=== PATIENT | female | born 1995 | race Caucasian/White ===

== ENCOUNTER 2016-12-14 15:37 | Emergency (ER) | payer OTHER ==
--- NOTE | 2016-12-14 16:17 | EDPHY ---
H & P Stated Complaint: RLQ Pain Source: Patient Exam Limitations: No limitations - Personal History LMP (Females 10-55): 8-14 Days Ago Current Tetanus/Diphtheria Vaccine: Yes Current Tetanus Diphtheria and Acellular Pertussis (TDAP): Yes Tetanus Vaccine Date: <10 years - Medical/Surgical History Hx Asthma: No Hx Chronic Respiratory Disease: No Hx Diabetes: No Hx Cardiac Disease: No Hx Renal Disease: No Hx Cirrhosis: No Hx Alcoholism: No Hx HIV/AIDS: No Hx Splenectomy or Spleen Trauma: No Other PMH: R ovarian cysts - Social History Smoking Status: Current some day smoker Time Seen by Provider: 12/14/16 15:48 HPI/ROS: CHIEF COMPLAINT: Right lower quadrant pain HISTORY OF PRESENT ILLNESS: 21-year-old female presents emergency department sent from her OBGYN for right lower quadrant pain. Patient reports a history of ovarian cysts, last one diagnosed in January. Patient reports she has had intermittent mild pain in this right lower quadrant for the past year that has significantly worsened in the last week. Patient denies fevers or chills, no nausea or vomiting, no urinary frequency, urgency or dysuria. Patient states the pain occasionally radiates to her flank. She denies vaginal discharge, she is sexually active. No pain with intercourse. No diarrhea. REVIEW OF SYSTEMS: A comprehensive 10 point review of systems is otherwise negative aside from elements mentioned in the history of present illness. (Bety Grimm) - Physical Exam Exam: Physical Exam Gen: Alert and Oriented, NAD HEENT: PERRL, moist mucous membranes NECK: no meningismus CV: regular rate and regular rhythm PULM: CTAB, no wheezes ABDOMEN: soft, umbilical and right lower quadrant tenderness to palpation, positive Rovsing's, negative rebound tenderness BACK: No CVA tenderness NEURO: Neurologically grossly intact EXTREMITIES: normal appearing SKIN: no rash or break in skin on exposed skin PSYCH: answers questions appropriately. (Bety Grimm) Constitutional: Initial Vital Signs Temperature (C) 36.9 C 12/14/16 15:42 Heart Rate 82 12/14/16 15:42 Respiratory Rate 14 12/14/16 15:42 Blood Pressure 117/85 H 12/14/16 15:42 O2 Sat (%) 100 12/14/16 15:42 O2 Delivery Mode Room Air Allergies/Adverse Reactions: Sulfa (Sulfonamide Antibiotics) Allergy (Verified 12/14/16 15:42) Home Medications: Medication Instructions Recorded Hydrocodone/APAP 5/325 [[place] 1 - 2 tab PO Q4 PRN #10 tab 12/14/16 5/325 (RX)] Medical Decision Making - Diagnostics Imaging: Ultrasound reported to me by Dr. Diogo Barney. No dominant ovarian cyst visualized. No free fluid in the pelvis. Normal appendix likely visualized. No evidence of appendicitis. See formal report. (Triny Conner) ED Course/Re-evaluation: IV established, CBC, chemistry panel, urinalysis, urine , right lower quadrant ultrasound and pelvic ultrasound have been ordered. 1700-report passed on to Dr. Conner at the end of my shift pending labs and ultrasound results. (Bety Grimm) Patient was seen and evaluated by me at 5:45 p.m.. On exam she has continued RLQ tenderness, no guarding. She is afebrile. She has not had vomiting or diarrhea. She underwent evaluation by her laborer road today, including pelvic exam. US negative for ovarian cyst, ovarian torsion, appendicitis. Possible constipation, but no history of constipation. I do not suspect PID. UA negative for UTI. Description of pain makes ureterolithiasis unlikely. No hematuria. She is not . We discussed CT of abdomen/pelvis (she has had a CT previously for abdominal pain) and agreed that this study would be unlikely to help with the diagnosis. She is comfortable with watching and waiting. She will follow up with gastroenterology if pain persists and is given a referral. She is given RX for small quantity of NOrco to use for pain relief. We reviewed the danger signs that should prompt her to be re-evaluated immediately. (Triny Conner) - Data Points Laboratory Results: Laboratory Results 12/14/16 16:15 12/14/16 16:15 12/14/16 16:15 WBC 6.27 10^3/uL (3.80-9.50) RBC 4.06 L 10^6/uL (4.18-5.33) Hgb 13.2 g/dL (12.6-16.3) Hct 37.6 L % (38.0-47.0) MCV 92.6 fL (81.5-99.8) MCH 32.5 pg (27.9-34.1) MCHC 35.1 g/dL (32.4-36.7) RDW 11.4 L % (11.5-15.2) Plt Count 263 10^3/uL (150-400) MPV 10.1 fL (8.7-11.7) Neut % (Auto) 58.8 % (39.3-74.2) Lymph % (Auto) 33.5 % (15.0-45.0) Band[place] % (Auto) 6.1 % (4.5-13.0) Eos % (Auto) 0.8 % (0.6-7.6) Baso % (Auto) 0.6 % (0.3-1.7) Nucleat RBC Rel Count 0.0 % (0.0-0.2) Absolute Neuts (auto) 3.69 10^3/uL (1.70-6.50) Absolute Lymphs (auto) 2.10 10^3/uL (1.00-3.00) Absolute Monos (auto) 0.38 10^3/uL (0.30-0.80) Absolute Eos (auto) 0.05 10^3/uL (0.03-0.40) Absolute Basos (auto) 0.04 10^3/uL (0.02-0.10) Absolute Nucleated RBC 0.00 10^3/uL (0-0.01) Immature Gran % 0.2 % (0.0-1.1) Immature Gran # 0.01 10^3/uL (0.00-0.10) Departure - Departure Disposition: Home, Routine, Self-Care Clinical Impression: Abdominal pain Qualifiers: Abdominal location: right lower quadrant Qualifier Code: (R10.31) Right lower quadrant pain Condition: Good Instructions: Abdominal Pain (ED) Additional Instructions: If you develop fever, vomiting, severe persistent abdominal pain-- you should return for another evaluation. I am referring you to Dr. Diogenes Cates, shelter supervisor, for additional evaluation as needed. Call his office tomorrow to schedule an appointment. Let them know that you were referred by the emergency department. Referrals: Diogenes Cates MD [Medical Doctor] - As per Instructions Stand Alone Forms: School Excuse Prescriptions: Hydrocodone/APAP 5/325 [[place] 5/325 (RX)] 1 - 2 tab PO Q4 PRN #10 tab PRN Reason: pain
[2016-12-14 16:26] LABS: COLOR YELLOW; LEUKOCYTE ESTERASE,URINE NEGATIVE (NEGATIVE); NITRITE,URINE NEGATIVE (NEGATIVE)
[2016-12-14 16:39] LABS: ANION GAP 11 mEq/L (8-16); CALCIUM 9.1 mg/dL (8.5-10.4); CARBON DIOXIDE 22 mEq/l (22-31); CHLORIDE 105 mEq/L (97-110); CREATININE 0.5 mg/dL (0.6-1.0); GLOMERULAR FILTRATION RATE > 60; GLUCOSE 85 mg/dL (70-100); POTASSIUM 3.9 mEq/L (3.5-5.2); SODIUM 138 mEq/L (134-144)
--- NOTE | 2016-12-14 17:54 | US ---
Ultrasound (Limited) Right Lower Quadrant Attention Appendix Reason for examination: Right lower quadrant pain. Technique: Longitudinal and transverse images are obtained with attention to the right lower quadrant . Graded compression is also employed. Color Doppler evaluation is employed for assessment of vascula rity. Findings: No noncompressible bowel is identified. There is possible visualization of a normal appendi x. No free fluid is identified. Additional findings are reported on the study of the pelvis. Impression: Possible visualization of a normal appendix with no secondary findings to support a clini jerry diagnosis of acute appendicitis. A preliminary report was called to Dr. Triny Conner at 1730 hours in the Emergency Department.
--- NOTE | 2016-12-14 18:00 | US ---
Ultrasound Pelvis Complete (Transabdominal and Endovaginal) History: Abdominal and pelvic pain in a 21-year-old female; evaluate for ovarian cyst. Technique: Transabdominal and endovaginal ultrasound images were obtained. Endovaginal images obtain ed for better evaluation of the uterine myometrium and adnexa. Color Doppler evaluation is employed f or assessment of vascularity. Findings: The uterus is normal in size and measures 6.9 x 6.1 x 4.3 cm. The endometrial measures 1.1 cm in thickness. No masses are seen. The ovaries are normal in size. The right ovary measures 4.4 x 2.7 x 2.3 cm. The right ovary is diffi cult to fully evaluate due to overlying bowel gas. The left ovary is only seen transabdominally being obscured on the transvaginal study by bowel gas. The left ovary measures 3.0 x 3.1 x 2.6 cm. No dom inant ovarian cyst is seen. No free fluid is identified in the pelvis. Color and pulsed Doppler flow is identified in both ovaries . In the upper pelvis in the midline there is a rounded nonperistalsing structure that may represent fe jerry material in the colon with a small bowel abnormality being much less likely. Impression: 1. Negative for free fluid or dominant ovarian cyst. 2. Nonperistalsing region in the upper pelvis in the midline may represent constipation. If clinicall y indicated CT could be considered for further assessment. A preliminary report was called to Dr. Triny Conner at 1730 hours in the Emergency Department.
[2016-12-14 18:29] VITALS: BP 124/83; PULSE 78; RESP 16; TEMP 98.1; O2SAT 97
[2016-12-15 07:25] LABS: % IMMATURE GRANULYOCYTES 0.2 % (0.0-1.1); ABSOLUTE IMMATURE GRANULOCYTES 0.01 10^3/uL (0.00-0.10); ADD DIFF? NO; ADD MORPH? NO; ADD SCAN? NO; ATYPICAL LYMPHOCYTE FLAG 10 (0-99); FRAGMENT RBC FLAG 0 (0-99); HEMATOCRIT 37.6 % (38.0-47.0); HEMOGLOBIN 13.2 g/dL (12.6-16.3); LEFT SHIFT FLG 0 (0-99); LIPEMIA HEMOLYSIS FLAG 90 (0-99); MEAN CELL HEMOGLOBIN 32.5 pg (27.9-34.1); MEAN CELL HEMOGLOBIN CONCENTR. 35.1 g/dL (32.4-36.7); MEAN CELL VOLUME 92.6 fL (81.5-99.8); MEAN PLATELET VOLUME 10.1 fL (8.7-11.7); PLATELET CLUMPS FLAG 0 (0-99); PLATELET COUNT 263 10^3/uL (150-400); RED BLOOD CELL COUNT 4.06 10^6/uL (4.18-5.33); RED CELL DISTRIBUTION WIDTH 11.4 % (11.5-15.2)
== END 2016-12-14 18:31 | disposition home or self-care (01) ==
DX: R10.31 Right lower quadrant pain (principal); F17.200 Nicotine dependence, unspecified, uncomplicated

== ENCOUNTER 2017-02-26 21:27 | Emergency (ER) | payer OTHER ==
[2017-02-26 21:42] VITALS: RESP 16; TEMP 98.4
--- NOTE | 2017-02-26 22:30 | EDPHY ---
H & P Stated Complaint: RLQ abd pain Time Seen by Provider: 02/26/17 22:24 HPI/ROS: CHIEF COMPLAINT: Abdominal pain. HISTORY OF PRESENT ILLNESS: The patient is a 21-year-old female who presents with RLQ pain that began yesterday and worsened today. The pain began after she drank alcohol Sunday night, which is a usual trigger for her. She reports that she has had this pain since July (7 months ago). She also has a pain beneath her right ribs that radiates to her back. She has been followed by a assembly line worker in [place] for this complaint. She has had multiple CTs and colonoscopies. Her last colonoscopy was a week ago. She admits associated nausea and bloating. No fever, chills, chest pain, shortness of breath, palpitations, vomiting, diarrhea, urinary complaints, headache, lightheadedness , vaginal discharge. The pain is worsened with alcohol, certain foods, and exercise. This is one of the worst flare-ups of these symptoms she has had. REVIEW OF SYSTEMS: Aside from elements discussed in the HPI, a comprehensive 10-point review of systems was reviewed and is negative. PAST MEDICAL HISTORY: Denies. SOCIAL HISTORY: [employer] Student, from [place]. VITAL SIGNS: Reviewed by me GENERAL: Well-developed, well-nourished, resting comfortably in no respiratory distress. HEENT: Atraumatic. Eyes: No icterus, no injection. Mouth: moist mucous membranes. No erythema or lesions. Neck: supple with no adenopathy. LUNGS: Clear to auscultation bilaterally, no wheezes, rhonchi or rales. CARDIAC: Regular rate and rhythm, no rubs, murmurs or gallops. ABDOMEN: Soft, nondistended, bowel sounds normal. Diffuse right-sided abdominal tenderness. Wants to push my hands away on exam, slight distended. BACK: Right CVA tenderness. EXTREMITIES: No trauma. No edema. Range of motion is normal throughout. NEURO: Alert and oriented, grossly nonfocal. SKIN: Warm and dry, no rash. PSYCHIATRIC: Normal mentation, no agitation. Portions of this note were transcribed by a chief medical officer. I personally performed a history, physical exam, medical decision making, and confirmed accuracy of information the transcribed note. Source: Patient Exam Limitations: No limitations - Personal History LMP (Females 10-55): 1-7 Days Ago Current Tetanus/Diphtheria Vaccine: Yes Current Tetanus Diphtheria and Acellular Pertussis (TDAP): Yes Tetanus Vaccine Date: <10 years - Medical/Surgical History Hx Asthma: No Hx Chronic Respiratory Disease: No Hx Diabetes: No Hx Cardiac Disease: No Hx Renal Disease: No Hx Cirrhosis: No Hx Alcoholism: No Hx HIV/AIDS: No Hx Splenectomy or Spleen Trauma: No Other PMH: R ovarian cysts, - Social History Smoking Status: Current some day smoker Constitutional: Initial Vital Signs Temperature (C) 36.9 C 02/26/17 21:40 Heart Rate 68 02/26/17 21:40 Respiratory Rate 16 02/26/17 21:40 Blood Pressure 137/77 H 02/26/17 21:40 O2 Sat (%) 97 02/26/17 21:40 O2 Delivery Mode Room Air Allergies/Adverse Reactions: Sulfa (Sulfonamide Antibiotics) Allergy (Verified 02/26/17 21:39) Home Medications: Medication Instructions Recorded Cephalexin [Keflex (*)] 500 mg PO TID 6 Days 02/26/17 Dicyclomine [Bentyl 20 MG (*)] 20 mg PO QID PRN #16 tab 02/26/17 Hyoscyamine 02/26/17 Medical Decision Making ED Course/Re-evaluation: 21-year-old female presents with a flare-up of the recurrent abdominal pain she has had since July of last year. She has been seen in the emergency department twice recently for this complaint. She had imaging studies both times and was diagnosed with constipation. She is being followed by a assembly line worker in [place] but has not seen a GI doctor here. An IV was established and labs ordered. 20mg PO Bentyl, 1L IV saline, 50mcg IV Fentanyl, and 4mg IV Zofran administered. Patient's urine has 5-10 white cells and 1+ bacteria with trace epithelial cells. It was sent for culture. Patient was started on Keflex. Examined on multiple occasions. Abdomen remains benign. Hx suggestive of irritable bowel disease. Will dc with bentyl prescription. Decision made not to pursue further imaging testing today. ENcourage follow up with GI. Differential Diagnosis: Diff dx considered included but not limited to irritable bowel, constipation, obstruction, ileus, acute surgical abdomen, pancreatitis, cholecystitis, colitis. - Data Points Laboratory Results: Laboratory Results 02/26/17 22:36 02/26/17 22:10 Medications Given: Discontinued Medications Cephalexin (Keflex 500 Mg Prepack#4) 1 btl TAKEHOME EDNOW ONE PRN Reason: Protocol Stop: 02/26/17 22:57 Last Admin: 02/26/17 23:13 Dose: 1 btl Dicyclomine HCl (Bentyl) 20 mg PO EDNOW ONE Stop: 02/26/17 22:38 Last Admin: 02/26/17 23:18 Dose: 20 mg Fentanyl (Sublimaze) 50 mcg IVP EDNOW ONE Stop: 02/26/17 22:38 Last Admin: 02/26/17 22:50 Dose: 50 mcg Sodium Chloride (Ns) 1,000 mls @ 0 mls/hr IV ONCE ONE PRN Reason: Wide Open Stop: 02/26/17 22:38 Last Admin: 02/26/17 22:49 Dose: 1,000 mls Ondansetron HCl (Zofran) 4 mg IVP EDNOW ONE Stop: 02/26/17 22:49 Last Admin: 02/26/17 22:49 Dose: 4 mg Departure - Departure Disposition: Home, Routine, Self-Care Clinical Impression: Abdominal pain Qualifiers: Abdominal location: unspecified location Qualified Code(s): R10.9 - Unspecified abdominal pain Condition: Good Instructions: Urinary Tract Infection in Women (ED), Abdominal Pain (ED) Additional Instructions: Call Dr. Sun, gastroenterology, to set up a follow up appointment. You been given a prescription of Bentyl. Please use this as directed for abdominal pain. Please eat a high-fiber diet, and drink plenty of fluid to avoid constipation. Return for any serious worsening of condition. Referrals: Zacarias Sun MD, FACG [Medical Doctor] - As per Instructions Kena Roca MD [place] [place] - As per Instructions Stand Alone Forms: School Excuse Prescriptions: Cephalexin [Keflex (*)] 500 mg PO TID 6 Days Dicyclomine [Bentyl 20 MG (*)] 20 mg PO QID PRN #16 tab PRN Reason: abdominal pain Report Scribed for: Estrellita Moreno Report Scribed by: Salvador Anderson Date of Report: 02/26/17 Time of Report: 22:30
[2017-02-26] MEDS ORDERED: DICYCLOMINE 20 MG TAB PO ONE (22:37)
[2017-02-26] MEDS ORDERED: NS 1,000 ML IV ONE (22:37)
[2017-02-26] MEDS ORDERED: fentaNYL 100 MCG/2 ML INJ IVP ONE (22:37)
[2017-02-26] MEDS ORDERED: ONDANSETRON 4 MG/2 ML VIAL ONE (22:41)
[2017-02-26 22:44] LABS: % IMMATURE GRANULYOCYTES 0.4 % (0.0-1.1); ABSOLUTE IMMATURE GRANULOCYTES 0.02 10^3/uL (0.00-0.10); ADD DIFF? NO; ADD MORPH? NO; ADD SCAN? NO; ATYPICAL LYMPHOCYTE FLAG 10 (0-99); FRAGMENT RBC FLAG 0 (0-99); HEMATOCRIT 35.6 % (38.0-47.0); HEMOGLOBIN 12.4 g/dL (12.6-16.3); LEFT SHIFT FLG 0 (0-99); LIPEMIA HEMOLYSIS FLAG 90 (0-99); MEAN CELL HEMOGLOBIN 31.8 pg (27.9-34.1); MEAN CELL HEMOGLOBIN CONCENTR. 34.8 g/dL (32.4-36.7); MEAN CELL VOLUME 91.3 fL (81.5-99.8); MEAN PLATELET VOLUME 9.6 fL (8.7-11.7); PLATELET CLUMPS FLAG 10 (0-99); PLATELET COUNT 257 10^3/uL (150-400); RED CELL DISTRIBUTION WIDTH 12.1 % (11.5-15.2)
[2017-02-26 22:47] LABS: COLOR PALE YELLOW; LEUKOCYTE ESTERASE,URINE TRACE (NEGATIVE); NITRITE,URINE NEGATIVE (NEGATIVE)
[2017-02-26] MEDS ORDERED: ONDANSETRON 4 MG/2 ML VIAL IVP ONE (22:48)
[2017-02-26 22:51] LABS: BHCG-QUALITATIVE NEGATIVE
[2017-02-26 22:53] LABS: ALANINE AMINOTRANSFERASE 32 IU/L (9-52); ALBUMIN 4.2 g/dL (3.5-5.0); ALKALINE PHOSPHATASE 37 IU/L (38-126); ANION GAP 10 mEq/L (8-16); ASPARTATE AMINOTRANSFERASE 19 IU/L (14-46); BILIRUBIN,TOTAL 0.3 mg/dL (0.1-1.4); BILIRUBIN-CONJUGATED 0.2 mg/dL (0.0-0.5); BILIRUBIN-UNCONJUGATED 0.1 mg/dL (0.0-1.1); CALCIUM 9.5 mg/dL (8.5-10.4); CARBON DIOXIDE 21 mEq/l (22-31); CHLORIDE 104 mEq/L (97-110); CREATININE 0.6 mg/dL (0.6-1.0); GLOMERULAR FILTRATION RATE > 60; GLUCOSE 80 mg/dL (70-100); POTASSIUM 3.9 mEq/L (3.5-5.2); SODIUM 135 mEq/L (134-144); TOTAL PROTEIN 6.9 g/dL (6.3-8.2)
[2017-02-26 22:54] LABS: BACTERIA TRACE /hpf (NONE SEEN)
[2017-02-26] MEDS ORDERED: CEPHALEXIN 500MG PREPACK#4 BTL TAKEHOME ONE (22:56)
[2017-02-26 23:19] VITALS: BP 124/71; PULSE 86; O2SAT 98
== END 2017-02-26 23:25 | disposition home or self-care (01) ==
DX: R10.84 Generalized abdominal pain (principal); F17.200 Nicotine dependence, unspecified, uncomplicated
CPT/HCPCS: 96374; J2405; J3010